=== PATIENT | female | born 2000 | race African-American/Black ===

== ENCOUNTER 2021-07-14 02:24 | Emergency (ER) | payer MEDICAID ==
[~2021-07-14] VITALS: Ht 170.2 cm; Wt 80.0 kg
[2021-07-14 02:32] VITALS: BP 117/72
[2021-07-14] MEDS ORDERED: CYCLOBENZAPRINE 10MG TABLET PO ONE (03:00)
[2021-07-14] MEDS ORDERED: KETOROLAC 60MG/2ML VIAL IM ONE (03:00)
[2021-07-14] MEDS ORDERED: IBUPROFEN 800MG TABLET PO ONE (03:30)
[2021-07-14] MEDS ORDERED: CYCL10TA7 MT (04:13)
[2021-07-14] MEDS ORDERED: IBUP-2030 MT (04:13)
== END 2021-07-14 05:01 | disposition home or self-care (01) ==
LOC: ER 02:24
DX: S39.012A Strain of muscle, fascia and tendon of lower back, initial encounter (principal); J45.909 Unspecified asthma, uncomplicated; V49.9XXA Car occupant (driver) (passenger) injured in unspecified traffic accident, initial encounter; Y93.89 Activity, other specified; Y92.89 Other specified places as the place of occurrence of the external cause; Y99.8 Other external cause status
CPT/HCPCS: 99283; J1885